=== PATIENT | male | born 1990 | race American Indian/Alaskan Native ===

== ENCOUNTER 2018-10-06 16:21 | Emergency (ER) | payer OTHER ==
[2018-10-06 16:37] VITALS: BP 121/78
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
[2018-10-06] MEDS ORDERED: IBUPROFEN PO ONE (18:06)
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
== END 2018-10-06 20:10 | disposition home or self-care (01) ==
LOC: ED 16:21
DX: S13.4XXA Sprain of ligaments of cervical spine, initial encounter (principal); S39.012A Strain of muscle, fascia and tendon of lower back, initial encounter; F17.200 Nicotine dependence, unspecified, uncomplicated; Z91.018 Allergy to other foods; V89.2XXA Person injured in unspecified motor-vehicle accident, traffic, initial encounter; Y93.89 Activity, other specified; Y92.488 Other paved roadways as the place of occurrence of the external cause; Y99.8 Other external cause status
CPT/HCPCS: 72040; 72100; 99283